=== PATIENT | female | born 1960 | race Caucasian/White ===

== ENCOUNTER → 2017-06-07 | Day surgery (SDC) | payer BC, OTHER ==
[~2017-06-07] MED LIST: Midazolam 1 MG/ML 2 ML SDV ONE; Propofol 200 MG/20 ML SDV ONE; Sodium Chloride 0.9% 1,000 ML IV SCH; fentaNYL 100 MCG/2 ML SDV ONE
--- NOTE | 2017-06-10 09:18 | OR ---
DATE OF PROCEDURE: 06/07/2017 PROCEDURE: Colonoscopy. FINDINGS: Rectal polyp, approximately 5 mm, completely removed using cold biopsy forceps. COMPLICATIONS: None. FULFILLMENT COORDINATOR: None. ANESTHESIA: MAC. RISKS: Risks, benefits, alternatives, and limitations including, but not limited to infection, bleeding, and perforation were explained to the patient, and they wished to proceed. PROCEDURE IN DETAIL: The patient was placed in left lateral decubitus position. Digital rectal exam was performed and showed some mild external hemorrhoids. The scope was introduced and advanced atraumatically to the ileocecal valve. A photo was taken. The scope was brought back to the ascending, transverse, descending colons, and retroflexed. In the rectum, there was a 5-mm polyp, which was identified and completely removed using cold biopsy forceps. No abnormalities on retroflexion. The patient tolerated the procedure well. Srinivas Chavira MD /[id number]
== END ==
LOC: JP.SDS 06:50
PROVIDERS: ATTEND Surgery
DX: Z12.11 Encounter for screening for malignant neoplasm of colon (principal); D12.8 Benign neoplasm of rectum; K64.4 Residual hemorrhoidal skin tags
CPT/HCPCS: 45380; 88305; J2250; J2704; J3010; J7040; J7030

== ENCOUNTER → 2017-06-20 | Day surgery (SDC) | payer OTHER ==
[~2017-06-20] MED LIST changes: +Lactated Ringers 1,000 ML IV SCH; +Lidocaine 1% with EPINEPHrine 1:100,000 50 ML MDV ONE; -Sodium Chloride 0.9% 1,000 ML IV SCH; +Sodium Chloride 0.9% 10 ML ONE; +Sodium Tetradecyl Sulfate 1% 20 MG/2 ML SDV ONE
[2017-06-20] MEDS: Lidocaine 1% w/EPINEPHrine 50 ML, Sodium Bicarbonate 5 MEQ in Sodium Chloride 0.9% 950 ML INJECT SCH ×2 (08:10→12:32)
--- NOTE | 2017-06-20 13:37 | OR ---
DATE OF PROCEDURE: 06/20/2017 PROCEDURES: 1. Radiofrequency ablation of left greater saphenous vein. 2. Radiofrequency ablation of right greater saphenous vein. 3. Sclerotherapy, right leg, multiple. 4. Sclerotherapy, left leg, multiple. 5. Compression wrapping, 2-stage, 20 mmHg, left leg (08739). 6. Compression wrapping to opposite leg (25799). COMPLICATIONS: None. CHAR FILTER OPERATOR: None. ANESTHESIA: MAC/local. RISKS: Risks, benefits, alternatives, and limitations including, but not limited to infection, bleeding, and DVT formation were explained to the patient, and they wished to proceed. PREOPERATIVE DIAGNOSIS: Venous/varicose vein insufficiency with inflammation and pain. POSTOPERATIVE DIAGNOSIS: Venous/varicose vein insufficiency with inflammation and pain. PROCEDURE IN DETAIL: The patient was placed in the supine position. The left GSV would be accessed at the level of the ankle first. This was accessed by using a 21-gauge needle, then exchanged for a 35,000th wire, and then exchanged for a 7-Spanish sheath. The RFA probe was then advanced to 3 cm from the saphenofemoral junction. Tumescent fluid was injected in 1 cm jacket around this and verified a second and third time. Direct even pressure was held as the RFA probe was deployed x2 proximally and distally, and x1 in all other segments. The sheath and device were then removed and direct pressure was held for 10 minutes and Dermabond was applied. The opposite leg was then performed in the same manner, same fashion, same technique, and in the same sequence using the same equipment. Sclerotherapy was then performed of the left and right legs. There were 6 on the right and 6 on the left. These were all injected using 0.33% sodium tetradactyl, and they were in lengths from 1 to 6 cm in diameter, greater than 5 mm. Compression wrapping, 2-stage, was then performed on left and right legs using 2-stage 20-mm compression wrapping in a [id number]-[id number] gradient. Once the initial layer was placed in [id number]-[id number] fashion, the second layer was also placed in [id number]. This was all the way up to the groin. The patient tolerated the procedure well. Srinivas Chavira MD /[id number]
== END ==
LOC: JP.SDS 06:32
PROVIDERS: ATTEND Surgery
DX: I83.12 Varicose veins of left lower extremity with inflammation (principal); I83.11 Varicose veins of right lower extremity with inflammation; I83.813 Varicose veins of bilateral lower extremities with pain; E78.5 Hyperlipidemia, unspecified; Z86.010 Personal history of colon polyps
CPT/HCPCS: 36471; 36475; J1642; J2250; J2704; J3010; J7040; J7050; J7120; J3490

== ENCOUNTER 2021-10-19 06:18 | Day surgery (SDC) | payer OTHER ==
[2021-10-19] MEDS ORDERED: Propofol 200 MG/20 ML SDV ONE (07:15)
[2021-10-19] MEDS ORDERED: Midazolam 1 MG/ML 2 ML SDV ONE (07:15)
[2021-10-19] MEDS ORDERED: fentaNYL 100 MCG/2 ML SDV ONE (07:15)
[2021-10-19] MEDS ORDERED: Lactated Ringers 1,000 ML IV SCH (09:45)
== END 2021-10-19 09:50 | disposition home or self-care (01) ==
LOC: JP.SDS 06:18
PROVIDERS: ATTEND Family Medicine
DX: K92.1 Melena (principal); K64.4 Residual hemorrhoidal skin tags; K64.8 Other hemorrhoids; Z86.010 Personal history of colon polyps
CPT/HCPCS: 45378; J2250; J2704; J3010; J7120